=== PATIENT | female | born 1980 | race African-American/Black ===

== ENCOUNTER 2022-02-07 17:24 | Emergency (ER) | payer OTHER ==
[2022-02-07 17:31] VITALS: BP 96/67; PULSE 90; RESP 18; TEMP 98.4; BMI 43.8
[2022-02-07] MEDS ORDERED: hydrOXYzine PAMOATE 25 MG CAPSULE (FP) PO ONE ×2 (18:14→18:23)
== END 2022-02-07 19:08 | disposition home or self-care (01) ==
LOC: JERFT 17:24 → JER 17:24 → JERFT 19:08
DX: F41.9 Anxiety disorder, unspecified (principal)
CPT/HCPCS: 93005; 93010; 99283-25

== ENCOUNTER 2023-06-26 12:47 | Emergency (ER) | payer OTHER ==
[2023-06-26 13:06] VITALS: RESP 18; BMI 25.7
[2023-06-26 13:08] VITALS: BP 119/70; PULSE 70; TEMP 98.2
== END 2023-06-26 14:45 | disposition left against medical advice (07) ==
LOC: JER 12:47
DX: R07.9 Chest pain, unspecified (principal)
CPT/HCPCS: 93005; 93010; 99283-25

== ENCOUNTER 2023-07-06 11:12 | Emergency (ER) | payer OTHER ==
[2023-07-06 11:21] VITALS: BP 117/70; PULSE 90; RESP 18; TEMP 98; BMI 32.8
[2023-07-06 15:15] LABS: EOS % 2.9 % (0-4.5); HEMATOCRIT 35.5 % (32.4-45.2); HEMOGLOBIN 11.3 GM/dL (10.7-15.3); LYMPH % 31.1 % (8-40); MCH 26.9 pg (25.7-33.7); MCHC 31.9 g/dl (32.0-36.0); MEAN CELL VOLUME 84.3 fl (80-96); MEAN PLT VOLUME 6.4 fl (7.5-11.1); MONO % 7.9 % (3.8-10.2); NEUT % 57.1 % (42.8-82.8); PLATELET COUNT 407 10^3/uL (134-434); RBC 4.21 M/mm3 (3.60-5.2); RDW 16.4 % (11.6-15.6); WHITE BLOOD COUNT 8.9 K/mm3 (4.0-10.0)
[2023-07-06 17:29] LABS: POTASSIUM 4.3 mmol/L (3.5-5.1)
[2023-07-06 17:31] LABS: CALCIUM 9.1 mg/dL (8.5-10.1)
[2023-07-06 17:32] LABS: ALBUMIN 3.1 g/dl (3.4-5.0)
[2023-07-06 17:35] LABS: CREATININE 0.7 mg/dL (0.55-1.3)
[2023-07-06 17:36] LABS: BILIRUBIN,TOTAL 0.4 mg/dL (0.2-1); TOT PROT 8.6 g/dl (6.4-8.2)
== END 2023-07-06 15:35 | disposition home or self-care (01) ==
LOC: JER 11:12
DX: R07.9 Chest pain, unspecified (principal); F41.9 Anxiety disorder, unspecified; R00.2 Palpitations
CPT/HCPCS: 36415; 71046-TC-FY; 80053; 84443; 84484; 84703; 85025; 93005; 93010; 99285-25

== ENCOUNTER 2023-09-20 06:13 | Observation (INO) | payer OTHER ==
[2023-09-20 07:14] LABS: BASO % 0.6 % (0-2.0); EOS % 5.2 % (0-4.5); HEMATOCRIT 36.4 % (32.4-45.2); HEMOGLOBIN 11.6 GM/dL (10.7-15.3); LYMPH % 25.2 % (8-40); MCHC 31.8 g/dl (32.0-36.0); MEAN CELL VOLUME 81.8 fl (80-96); MONO % 9.4 % (3.8-10.2); NEUT % 59.6 % (42.8-82.8); PLATELET COUNT 341 10^3/uL (134-434); RBC 4.45 M/mm3 (3.60-5.2); RDW 16.9 % (11.6-15.6); WHITE BLOOD COUNT 9.8 K/mm3 (4.0-10.0)
[2023-09-20 07:28] LABS: POTASSIUM 4.5 mmol/L (3.5-5.1)
[2023-09-20 07:29] LABS: CALCIUM 8.7 mg/dL (8.5-10.1)
[2023-09-20 07:30] LABS: ALBUMIN 3.2 g/dl (3.4-5.0); BLOOD UREA NITROGEN 8.6 mg/dL (7-18)
[2023-09-20 07:33] LABS: CREATININE 0.8 mg/dL (0.55-1.3)
[2023-09-20 07:35] LABS: BILIRUBIN,TOTAL 0.7 mg/dL (0.2-1); TOT PROT 8.2 g/dl (6.4-8.2)
[2023-09-20] MEDS ORDERED: ACETAMINOPHEN INJECTION 100 ML IVPB ONE (08:17)
[2023-09-20] MEDS: ACETAMINOPHEN 1000 MG/100 ML BAG IVPB ONE (08:19)
[2023-09-20] MEDS ORDERED: FAMOTIDINE 20 MG/50 ML IVPB 20 MG/50 ML MG IVPB ONE (08:31)
[2023-09-20] MEDS: FAMOTIDINE 20 MG/50 ML IVPB 20 MG/50 ML MG IVPB ONE (08:45)
[2023-09-20 09:44] LABS: INR 1.11 (0.83-1.09); PROTHROMBIN TIME (PATIENT) 12.9 SEC (9.7-13.0)
[2023-09-20 09:47] LABS: ACTIVATED PTT 33.2 SECONDS (25.2-36.5)
[2023-09-20] MEDS: prednisoLONE ACETATE 1% OPHTH SUSP 5 ML BOTTLE OD SCH (10:26)
[2023-09-20 11:18] VITALS: BMI 44.2
[2023-09-20] MEDS ORDERED: LIDOCAINE VISCOUS 2% ORAL/TOP 15 ML UNIT-DOSE CUP ONE (11:19)
[2023-09-20] MEDS: LIDOCAINE VISCOUS 2% ORAL/TOP 15 ML UNIT-DOSE CUP PO ONE (11:25)
[2023-09-20] MEDS: TETRACAINE/BENZOCAINE/BUTAMBEN 20 GM SPR TP ONE (11:26)
[2023-09-20 11:49] VITALS: TEMP 98.1
[2023-09-20 13:09] VITALS: BP 134/64; PULSE 74; RESP 20
[2023-09-20] MEDS ORDERED: ATORVASTATIN CA 10 MG TABLET (FP) PO SCH (22:00)
== END 2023-09-20 15:46 | disposition home or self-care (01) ==
LOC: JER 06:13 → JERBED 08:43 → J6S 09:28
PROVIDERS: ADMIT Internal Medicine; ATTEND Internal Medicine
PROC: 0DB68ZX Excision of Stomach, Via Natural or Artificial Opening Endoscopic, Diagnostic (ICD-10-PCS; 2023-09-20)
PROC: 3E033GC Introduction of Other Therapeutic Substance into Peripheral Vein, Percutaneous Approach (ICD-10-PCS; 2023-09-20)
PROC: 3E033GC Introduction of Other Therapeutic Substance into Peripheral Vein, Percutaneous Approach (ICD-10-PCS; principal; 2023-09-20 10:45)
DX: R09.89 Other specified symptoms and signs involving the circulatory and respiratory systems (principal); R10.13 Epigastric pain; R13.10 Dysphagia, unspecified; D69.3 Immune thrombocytopenic purpura; E78.5 Hyperlipidemia, unspecified; Z87.891 Personal history of nicotine dependence; F19.21 Other psychoactive substance dependence, in remission
CPT/HCPCS: 36415; 70360-TC-FY; 71046-TC-FY; 71250-TC; 74190-TC-FY; 80053; 84484; 84703; 85025; 85610; 85730; 86850; 86870; 86880; 86900; 86901; 86902; 88305-TC; 88342-TC; 93005; 93010; 96365; 96375; 99285-25; G0378

== ENCOUNTER 2023-10-01 14:41 | Emergency (ER) | payer OTHER ==
[2023-10-01 14:58] VITALS: BP 119/70; PULSE 74; RESP 18; TEMP 98; BMI 44.6
[2023-10-01 16:58] LABS: BASO % 0.8 % (0-2.0); EOS % 4.3 % (0-4.5); LYMPH % 28.8 % (8-40); MCH 25.9 pg (25.7-33.7); MCHC 32.3 g/dl (32.0-36.0); MEAN CELL VOLUME 80.1 fl (80-96); MEAN PLT VOLUME 6.7 fl (7.5-11.1); MONO % 8.7 % (3.8-10.2); NEUT % 57.4 % (42.8-82.8); PLATELET COUNT 322 10^3/uL (134-434); RBC 4.62 M/mm3 (3.60-5.2); RDW 16.5 % (11.6-15.6); WHITE BLOOD COUNT 8.6 K/mm3 (4.0-10.0)
[2023-10-01 17:07] LABS: INR 1.03 (0.83-1.09); PROTHROMBIN TIME (PATIENT) 11.6 SEC (9.7-13.0)
[2023-10-01 17:22] LABS: POTASSIUM 4.5 mmol/L (3.5-5.1)
[2023-10-01 17:24] LABS: CALCIUM 9.1 mg/dL (8.5-10.1)
[2023-10-01 17:25] LABS: ALBUMIN 3.2 g/dl (3.4-5.0); BLOOD UREA NITROGEN 7.6 mg/dL (7-18)
[2023-10-01 17:28] LABS: CREATININE 0.7 mg/dL (0.55-1.3)
[2023-10-01 17:29] LABS: BILIRUBIN,TOTAL 0.6 mg/dL (0.2-1); TOT PROT 8.1 g/dl (6.4-8.2)
== END 2023-10-01 18:57 | disposition home or self-care (01) ==
LOC: JER 14:41
DX: R10.32 Left lower quadrant pain (principal); R11.0 Nausea
CPT/HCPCS: 36415; 80053; 85025; 85610; 85730; 99283-25

== ENCOUNTER 2023-11-28 08:52 | Emergency (ER) | payer OTHER ==
[2023-11-28 08:59] VITALS: BP 129/57; PULSE 79; RESP 20; TEMP 98; BMI 43.5
[2023-11-28] MEDS ORDERED: ACETAMINOPHEN INJECTION 100 ML IVPB ONE (10:27)
[2023-11-28] MEDS: ACETAMINOPHEN 1000 MG/100 ML BAG IVPB ONE (10:31)
[2023-11-28 10:34] LABS: BASO % 1.1 % (0-2.0); EOS % 7.4 % (0-4.5); HEMATOCRIT 33.8 % (32.4-45.2); HEMOGLOBIN 11.1 GM/dL (10.7-15.3); LYMPH % 31.2 % (8-40); MCH 26.2 pg (25.7-33.7); MCHC 32.9 g/dl (32.0-36.0); MEAN CELL VOLUME 79.5 fl (80-96); MEAN PLT VOLUME 7.5 fl (7.5-11.1); MONO % 8.6 % (3.8-10.2); NEUT % 51.7 % (42.8-82.8); PLATELET COUNT 530 10^3/uL (134-434); RBC 4.25 M/mm3 (3.60-5.2); RDW 16.9 % (11.6-15.6); WHITE BLOOD COUNT 5.9 K/mm3 (4.0-10.0)
[2023-11-28 10:50] LABS: POTASSIUM 4.3 mmol/L (3.5-5.1)
[2023-11-28 10:52] LABS: ALBUMIN 3.1 g/dl (3.4-5.0); BLOOD UREA NITROGEN 10.6 mg/dL (7-18); CALCIUM 8.9 mg/dL (8.5-10.1)
[2023-11-28 10:55] LABS: CREATININE 0.8 mg/dL (0.55-1.3)
[2023-11-28 10:57] LABS: BILIRUBIN,TOTAL 0.5 mg/dL (0.2-1); TOT PROT 8.3 g/dl (6.4-8.2)
== END 2023-11-28 11:57 | disposition home or self-care (01) ==
LOC: JER 08:52
DX: R07.89 Other chest pain (principal)
CPT/HCPCS: 36415; 71046-TC-FY; 80053; 84484; 84703; 85025; 93005; 93010; 99285-25

== ENCOUNTER 2023-12-26 15:00 | Emergency (ER) | payer OTHER ==
[2023-12-26 15:05] VITALS: BP 113/75; PULSE 72; RESP 16; TEMP 98.3; BMI 43.5
[2023-12-26] MEDS ORDERED: MULTIVITAMINS (DAILY MVI) TABLET (FP) ONE (16:19)
[2023-12-26] MEDS: MULTIVITAMINS (DAILY MVI) TABLET (FP) PO ONE (16:19)
[2023-12-26] MEDS: Methylnaltrexone Bromide 12 MG/0.6 ML KIT SQ SCH (17:54)
== END 2023-12-26 18:13 | disposition home or self-care (01) ==
LOC: JER 15:00
DX: K59.00 Constipation, unspecified (principal); R63.0 Anorexia; R14.0 Abdominal distension (gaseous); R10.9 Unspecified abdominal pain
CPT/HCPCS: 99283-25

== ENCOUNTER 2024-01-11 20:45 | Emergency (ER) | payer OTHER ==
[2024-01-11 20:54] VITALS: BP 141/79; PULSE 88; RESP 18; TEMP 99.1; BMI 43.5
[2024-01-11] MEDS ORDERED: METHOCARBAMOL 500 MG TABLET ONE (22:10)
[2024-01-11] MEDS ORDERED: LIDOCAINE 5% TOPICAL PATCH ONE (22:11)
[2024-01-11] MEDS ORDERED: ACETAMINOPHEN 325 MG TABLET (FP) ONE (22:11)
[2024-01-11] MEDS: METHOCARBAMOL 500 MG TABLET PO ONE (22:17)
[2024-01-11] MEDS: LIDOCAINE 4% PATCH TP ONE (22:17)
[2024-01-11] MEDS: ACETAMINOPHEN 500 MG TABLET (FP) PO ONE (22:17)
[2024-01-11 22:33] LABS: PH,URINE 5.5 (5.0-8.0); URINE APPEARANCE CLEAR; URINE BILIRUBIN NEGATIVE (NEGATIVE); URINE COLOR YELLOW; URINE GLUCOSE (UA) NEGATIVE (NEGATIVE); URINE KETONE NEGATIVE (NEGATIVE); URINE LEUK ESTERASE NEGATIVE (NEGATIVE); URINE NITRITE NEGATIVE (NEGATIVE); URINE PROTEIN NEGATIVE (NEGATIVE)
[2024-01-11 22:45] LABS: HEMATOCRIT 35.1 % (32.4-45.2); HEMOGLOBIN 11.6 GM/dL (10.7-15.3); MCH 27.6 pg (25.7-33.7); MEAN CELL VOLUME 83.7 fl (80-96); MEAN PLT VOLUME 8.3 fl (7.5-11.1); PLATELET COUNT 418 10^3/uL (134-434); WHITE BLOOD COUNT 9.2 K/mm3 (4.0-10.0)
[2024-01-11] MEDS: LIDOCAINE PATCH REMOVAL MC SCH (22:52)
[2024-01-11 22:53] LABS: CHLORIDE 104 mmol/L (98-107); SODIUM 133 mmol/L (136-145)
[2024-01-11 22:54] LABS: BLOOD UREA NITROGEN 8.8 mg/dL (7-18); CALCIUM 8.8 mg/dL (8.5-10.1); CO2 26 mmol/L (21-32); GLUCOSE,RANDOM 83 mg/dL (74-106)
[2024-01-11 22:58] LABS: CREATININE 0.9 mg/dL (0.55-1.3)
[2024-01-11 23:12] LABS: ANISOCYTOSIS 1+; MACROCYTOSIS 1+; OVALOCYTE 1+
[2024-01-11 23:32] LABS: ANION GAP 3 mmol/L (4-13); POTASSIUM 7.7 mmol/L (3.5-5.1)
== END 2024-01-11 23:26 | disposition home or self-care (01) ==
LOC: JER 20:45
DX: R10.9 Unspecified abdominal pain (principal); R35.0 Frequency of micturition
CPT/HCPCS: 36415; 80048; 81003; 84703; 85025; 99283-25

== ENCOUNTER 2024-02-08 18:12 | Emergency (ER) | payer OTHER ==
[2024-02-08 18:20] VITALS: BP 124/72; PULSE 96; RESP 18; TEMP 98.8; BMI 41.9
[2024-02-08] MEDS ORDERED: TETRACAINE 0.5% OPHTH SOLN 2 ML BOTTLE ONE (18:27)
[2024-02-08] MEDS ORDERED: FLUORESCEIN NA 1 EA STRIP ONE (18:27)
[2024-02-08] MEDS: TETRACAINE 0.5% OPHTH SOLN 2 ML BOTTLE OD ONE (18:55)
[2024-02-08] MEDS: FLUORESCEIN NA 1 EA STRIP OD ONE (18:55)
[2024-02-08] MEDS ORDERED: ACETAMINOPHEN 500 MG TABLET (FP) ONE (19:01)
[2024-02-08] MEDS ORDERED: AMOX TR/POT CLAV 875MG/125MG TABLETS (FP) ONE (19:01)
[2024-02-08] MEDS: ACETAMINOPHEN 500 MG TABLET (FP) PO ONE (19:05)
[2024-02-08] MEDS: AMOX TR/POT CLAV 875MG/125MG TABLETS (FP) PO ONE (19:06)
== END 2024-02-08 19:09 | disposition home or self-care (01) ==
LOC: JER 18:12 → JERFT 18:12
DX: H66.91 Otitis media, unspecified, right ear (principal); H11.441 Conjunctival cysts, right eye; R51.9 Headache, unspecified
CPT/HCPCS: 99283-25

== ENCOUNTER 2024-02-09 11:49 | Emergency (ER) | payer OTHER ==
[2024-02-09 11:57] VITALS: BP 109/65; PULSE 64; RESP 18; TEMP 98.6; BMI 38.7
== END 2024-02-09 13:56 | disposition left against medical advice (07) ==
LOC: JER 11:49
DX: Z53.21 Procedure and treatment not carried out due to patient leaving prior to being seen by health care provider (principal)
CPT/HCPCS: 93005; 93010; 99281-25

== ENCOUNTER 2024-02-19 08:12 | Emergency (ER) | payer OTHER ==
[2024-02-19 08:24] VITALS: BP 111/64; PULSE 75; RESP 18; TEMP 98.7; BMI 39.4
[2024-02-19 09:52] LABS: URINE APPEARANCE CLEAR; URINE BILIRUBIN NEGATIVE (NEGATIVE); URINE COLOR YELLOW; URINE GLUCOSE (UA) NEGATIVE (NEGATIVE); URINE KETONE TRACE (NEGATIVE); URINE LEUK ESTERASE NEGATIVE (NEGATIVE); URINE NITRITE NEGATIVE (NEGATIVE); URINE PROTEIN NEGATIVE (NEGATIVE)
[2024-02-19 09:52] LABS: BASO % 1.2 % (0-2.0); EOS % 5.3 % (0-4.5); HEMATOCRIT 35.2 % (32.4-45.2); HEMOGLOBIN 11.1 GM/dL (10.7-15.3); LYMPH % 28.8 % (8-40); MCH 26.5 pg (25.7-33.7); MCHC 31.5 g/dl (32.0-36.0); MEAN CELL VOLUME 83.9 fl (80-96); MEAN PLT VOLUME 7.2 fl (7.5-11.1); MONO % 8.9 % (3.8-10.2); NEUT % 55.8 % (42.8-82.8); PLATELET COUNT 493 10^3/uL (134-434); RBC 4.19 M/mm3 (3.60-5.2); RDW 18.9 % (11.6-15.6); WHITE BLOOD COUNT 7.4 K/mm3 (4.0-10.0)
[2024-02-19 10:08] LABS: POTASSIUM 4.2 mmol/L (3.5-5.1)
[2024-02-19 10:12] LABS: ALBUMIN 3.3 g/dl (3.4-5.0); BLOOD UREA NITROGEN 8.8 mg/dL (7-18)
[2024-02-19] MEDS ORDERED: ACETAMINOPHEN 325 MG TABLET (FP) ONE (10:12)
[2024-02-19 10:15] LABS: CREATININE 0.8 mg/dL (0.55-1.3)
[2024-02-19 10:16] LABS: BILIRUBIN,TOTAL 0.6 mg/dL (0.2-1)
[2024-02-19 10:17] LABS: TOT PROT 8.2 g/dl (6.4-8.2)
== END 2024-02-19 14:05 | disposition home or self-care (01) ==
LOC: JER 08:12
DX: O09.521 Supervision of elderly multigravida, first trimester (principal); O26.899 Other specified pregnancy related conditions, unspecified trimester; R10.2 Pelvic and perineal pain; Z3A.00 Weeks of gestation of pregnancy not specified
CPT/HCPCS: 36415; 76817-TC; 80053; 81003; 84702; 84703; 85025; 87086; 87186; 99284-25

== ENCOUNTER 2024-02-21 08:31 | Emergency (ER) | payer OTHER ==
[2024-02-21 08:38] VITALS: BP 125/68; PULSE 84; RESP 17; TEMP 99; BMI 39.4
== END 2024-02-21 11:53 | disposition home or self-care (01) ==
LOC: JER 08:31
DX: O09.521 Supervision of elderly multigravida, first trimester (principal); O26.891 Other specified pregnancy related conditions, first trimester; R10.9 Unspecified abdominal pain; Z3A.01 Less than 8 weeks gestation of pregnancy
CPT/HCPCS: 36415; 84702; 99283-25

== ENCOUNTER 2024-02-24 11:30 | Emergency (ER) | payer OTHER ==
[2024-02-24 11:37] VITALS: BP 117/66; PULSE 71; RESP 18; TEMP 98.3; BMI 39.4
[2024-02-24 13:14] LABS: URINE APPEARANCE CLEAR; URINE BILIRUBIN NEGATIVE (NEGATIVE); URINE COLOR YELLOW; URINE GLUCOSE (UA) NEGATIVE (NEGATIVE); URINE KETONE TRACE (NEGATIVE); URINE LEUK ESTERASE NEGATIVE (NEGATIVE); URINE NITRITE NEGATIVE (NEGATIVE); URINE PROTEIN NEGATIVE (NEGATIVE)
== END 2024-02-24 14:21 | disposition left against medical advice (07) ==
LOC: JER 11:30
DX: O26.851 Spotting complicating pregnancy, first trimester (principal); O26.891 Other specified pregnancy related conditions, first trimester; R10.31 Right lower quadrant pain; Z3A.01 Less than 8 weeks gestation of pregnancy
CPT/HCPCS: 81003; 87086; 99283-25

== ENCOUNTER 2024-03-10 18:06 | Emergency (ER) | payer OTHER ==
[2024-03-10 18:18] VITALS: BP 120/67; PULSE 78; RESP 18; TEMP 98; BMI 38.2
[2024-03-10] MEDS ORDERED: ACETAMINOPHEN 1000 MG/100 ML BAG IVPB ONE (19:15)
[2024-03-10] MEDS ORDERED: FAMOTIDINE 20 MG/50 ML IVPB 20 MG/50 ML MG IVPB ONE (19:15)
[2024-03-10] MEDS ORDERED: MAG HYDROX/AL HYDROX/SIMETH 30 ML UNIT-DOSE CUP PO ONE (19:15)
== END 2024-03-10 19:40 | disposition left against medical advice (07) ==
LOC: JER 18:06
DX: R07.89 Other chest pain (principal); R10.84 Generalized abdominal pain
CPT/HCPCS: 93005; 93010; 99283-25

== ENCOUNTER 2024-03-30 20:45 | Emergency (ER) | payer OTHER ==
[2024-03-30 20:53] VITALS: BP 125/70; PULSE 72; RESP 20; TEMP 99.3; BMI 37.5
[2024-03-30 23:31] LABS: EPI CELLS 21 /uL (0-25.1); HYALINE CASTS 1 /uL (0-3.1); PH,URINE 5.5 (5.0-8.0); URINE APPEARANCE CLOUDY; URINE BACTERIA 42 /uL (0-1359); URINE BILIRUBIN NEGATIVE (NEGATIVE); URINE COLOR DK YELLOW; URINE GLUCOSE (UA) NEGATIVE (NEGATIVE); URINE KETONE TRACE (NEGATIVE); URINE LEUK ESTERASE TRACE (NEGATIVE); URINE NITRITE NEGATIVE (NEGATIVE); URINE PROTEIN 1+ (NEGATIVE); URINE RBC 8203 /uL (0-23.9); URINE WBC 29 /uL (0-25.8)
[2024-03-31] MEDS: SODIUM CHLORIDE 0.9% 500 ML INFUS.BAG IV ONE (00:11)
[2024-03-31 00:38] LABS: BASO % 0.5 % (0-2.0); EOS % 2.8 % (0-4.5); HEMATOCRIT 35.4 % (32.4-45.2); HEMOGLOBIN 11.4 GM/dL (10.7-15.3); LYMPH % 26.1 % (8-40); MCH 27.7 pg (25.7-33.7); MCHC 32.2 g/dl (32.0-36.0); MEAN CELL VOLUME 86.1 fl (80-96); MONO % 8.5 % (3.8-10.2); NEUT % 62.1 % (42.8-82.8); PLATELET COUNT 212 10^3/uL (134-434); RBC 4.11 M/mm3 (3.60-5.2)
[2024-03-31 00:48] LABS: POTASSIUM 3.8 mmol/L (3.5-5.1)
[2024-03-31 00:50] LABS: ALBUMIN 3.5 g/dl (3.4-5.0); CALCIUM 9.3 mg/dL (8.5-10.1)
[2024-03-31 00:51] LABS: BLOOD UREA NITROGEN 10.3 mg/dL (7-18)
[2024-03-31 00:54] LABS: CREATININE 0.7 mg/dL (0.55-1.3)
[2024-03-31 00:56] LABS: BILIRUBIN,TOTAL 0.4 mg/dL (0.2-1); TOT PROT 8.2 g/dl (6.4-8.2)
[2024-03-31 01:13] LABS: INR 1.07 (0.83-1.09); PROTHROMBIN TIME (PATIENT) 12.3 SEC (9.7-13.0)
[2024-03-31 01:16] LABS: ACTIVATED PTT 36.3 SECONDS (25.2-36.5)
== END 2024-03-31 01:52 | disposition home or self-care (01) ==
LOC: JER 20:45
DX: O03.9 Complete or unspecified spontaneous abortion without complication (principal)
CPT/HCPCS: 36415; 76817-TC; 80053; 81003; 83735; 84702; 85025; 85610; 85730; 87086; 99284-25

== ENCOUNTER 2024-04-01 16:18 | Emergency (ER) | payer OTHER ==
[2024-04-01 16:38] VITALS: BP 121/79; PULSE 88; RESP 20; TEMP 98.3; BMI 38.7
[2024-04-01 17:26] LABS: BASO % 0.8 % (0-2.0); HEMATOCRIT 34.4 % (32.4-45.2); HEMOGLOBIN 11.1 GM/dL (10.7-15.3); LYMPH % 25.6 % (8-40); MCH 27.7 pg (25.7-33.7); MCHC 32.3 g/dl (32.0-36.0); MEAN CELL VOLUME 85.6 fl (80-96); MEAN PLT VOLUME 7.5 fl (7.5-11.1); NEUT % 61.6 % (42.8-82.8); PLATELET COUNT 223 10^3/uL (134-434); RBC 4.01 M/mm3 (3.60-5.2); RDW 16.9 % (11.6-15.6); WHITE BLOOD COUNT 7.5 K/mm3 (4.0-10.0)
[2024-04-01 17:49] LABS: POTASSIUM 3.4 mmol/L (3.5-5.1)
[2024-04-01 17:50] LABS: CALCIUM 8.6 mg/dL (8.5-10.1)
[2024-04-01 17:51] LABS: ALBUMIN 3.5 g/dl (3.4-5.0); BLOOD UREA NITROGEN 7.7 mg/dL (7-18)
[2024-04-01 17:54] LABS: CREATININE 0.8 mg/dL (0.55-1.3)
[2024-04-01 17:56] LABS: BILIRUBIN,TOTAL 0.9 mg/dL (0.2-1); TOT PROT 8.1 g/dl (6.4-8.2)
[2024-04-01] MEDS ORDERED: POTASSIUM CHLORIDE ORAL LIQUID 20 MEQ/15 ML ONE (18:18)
[2024-04-01] MEDS: POTASSIUM CHLORIDE ORAL LIQUID 20 MEQ/15 ML PO ONE (18:29)
== END 2024-04-01 18:33 | disposition left against medical advice (07) ==
LOC: JER 16:18
DX: O03.9 Complete or unspecified spontaneous abortion without complication (principal); E87.6 Hypokalemia; R42 Dizziness and giddiness; R07.9 Chest pain, unspecified
CPT/HCPCS: 36415; 80053; 84484; 84702; 85025; 93005; 93010; 99284-25

== ENCOUNTER 2024-07-28 17:37 | Emergency (ER) | payer OTHER ==
[2024-07-28 18:15] VITALS: TEMP 99.2; BMI 38.7
[2024-07-28 20:37] LABS: BASO % 0.6 % (0-2.0); EOS % 3.3 % (0-4.5); HEMOGLOBIN 10.3 GM/dL (10.7-15.3); LYMPH % 27.5 % (8-40); MCHC 33.2 g/dl (32.0-36.0); MEAN CELL VOLUME 84.3 fl (80-96); MEAN PLT VOLUME 6.8 fl (7.5-11.1); MONO % 7.9 % (3.8-10.2); NEUT % 60.7 % (42.8-82.8); PLATELET COUNT 461 10^3/uL (134-434); RBC 3.68 M/mm3 (3.60-5.2); RDW 16.7 % (11.6-15.6); WHITE BLOOD COUNT 8.6 K/mm3 (4.0-10.0)
[2024-07-28 20:38] LABS: PH,URINE 5.5 (5.0-8.0); URINE APPEARANCE CLOUDY; URINE BILIRUBIN NEGATIVE (NEGATIVE); URINE COLOR YELLOW; URINE GLUCOSE (UA) NEGATIVE (NEGATIVE); URINE KETONE 2+ (NEGATIVE); URINE LEUK ESTERASE NEGATIVE (NEGATIVE); URINE NITRITE NEGATIVE (NEGATIVE); URINE PROTEIN NEGATIVE (NEGATIVE)
[2024-07-28 20:41] LABS: HCG,QUALITATIVE URINE Negative
[2024-07-28 21:18] LABS: CHLORIDE 104 mmol/L (98-107); SODIUM 133 mmol/L (136-145)
[2024-07-28 21:19] LABS: POTASSIUM 7.3 mmol/L (3.5-5.1)
[2024-07-28 21:20] LABS: ALBUMIN 2.8 g/dl (3.4-5.0); ANION GAP 6 mmol/L (4-13); BLOOD UREA NITROGEN 13.3 mg/dL (7-18); CALCIUM 8.7 mg/dL (8.5-10.1); CO2 23 mmol/L (21-32); GLUCOSE,RANDOM 68 mg/dL (74-106)
[2024-07-28 21:23] LABS: CREATININE 0.7 mg/dL (0.55-1.3); SGOT/AST 82 U/L (15-37)
[2024-07-28 21:25] LABS: BILIRUBIN,TOTAL 0.7 mg/dL (0.2-1); TOT PROT 8.1 g/dl (6.4-8.2)
[2024-07-28 21:26] LABS: ALK PHOS 71 U/L (45-117); SGPT/ALT 26 U/L (13-61)
[2024-07-28] MEDS ORDERED: ACETAMINOPHEN INJECTION 100 ML ONE (21:42)
[2024-07-28] MEDS: ACETAMINOPHEN 1000 MG/100 ML BAG IVPB ONE (21:43)
[2024-07-28] MEDS: SODIUM CHLORIDE 0.9% 500 ML INFUS.BAG IV ONE (22:47)
[2024-07-28] MEDS ORDERED: morphine SULFATE 4 MG/ML VIAL ONE (22:51)
[2024-07-28] MEDS: morphine CARPU-JECT 4 MG/1 ML DISP.SYRIN IVPUSH ONE (22:56)
[2024-07-28 23:43] VITALS: BP 143/70; PULSE 88; RESP 16
[2024-07-28] MEDS ORDERED: APIXABAN 5 MG TABLET PO ONE ×2 (23:48)
[2024-07-29] MEDS ORDERED: APIXABAN 2.5 MG TABLET ONE (00:05)
[2024-07-29 01:20] LABS: POTASSIUM 4.1 mmol/L (3.5-5.1)
[2024-07-29 01:22] LABS: BLOOD UREA NITROGEN 13.4 mg/dL (7-18); CALCIUM 8.8 mg/dL (8.5-10.1)
[2024-07-29 01:25] LABS: CREATININE 0.6 mg/dL (0.55-1.3)
[2024-07-29] MEDS ORDERED: APIXABAN 5 MG TABLET PO SCH (10:00)
== END 2024-07-29 00:10 | disposition home or self-care (01) ==
LOC: JER 17:37
PROC: 3E033NZ Introduction of Analgesics, Hypnotics, Sedatives into Peripheral Vein, Percutaneous Approach (ICD-10-PCS; principal; 2024-07-28)
PROC: 3E033NZ Introduction of Analgesics, Hypnotics, Sedatives into Peripheral Vein, Percutaneous Approach (ICD-10-PCS; 2024-07-28)
DX: K59.00 Constipation, unspecified (principal); R10.32 Left lower quadrant pain
CPT/HCPCS: 36415; 74177-TC; 80048; 80053; 81003; 84703; 85025; 86140; 87086; 87186; 93005; 93010; 96374; 96375; 99285-25; J0131; Q9967

== ENCOUNTER 2024-08-20 13:48 | Emergency (ER) | payer OTHER ==
[2024-08-20 13:55] VITALS: BP 135/71; PULSE 76; RESP 18; TEMP 98.6; BMI 38.7
[2024-08-20 16:59] LABS: ABSOLUTE IMMATURE GRANULOCYTES 0.01 x10^3/uL (0.0-0.031); BASOPHILS # 0.09 x10^3/uL (0.01-0.08); EOSINOPHIL % 7.7 % (0.7-5.8); EOSINOPHILS # 0.55 x10^3/uL (0.04-0.36); HEMATOCRIT 33.8 % (34.1-44.9); HEMOGLOBIN 10.6 g/dL (11.2-15.7); MCHC 31.4 g/dl (32.2-35.5); MEAN PLT VOLUME 11.3 fl (9.4-12.3); MONOCYTE # 0.64 x10^3/uL (0.24-0.86); PLATELET COUNT # 323 x10^3/uL (182-369); RDW 17.7 % (12.2-17.1)
[2024-08-20 17:16] LABS: CHLORIDE 102 mmol/L (98-107); SODIUM 133 mmol/L (136-145)
[2024-08-20 17:18] LABS: ALBUMIN 3.4 g/dl (3.4-5.0); CALCIUM 8.9 mg/dL (8.5-10.1)
[2024-08-20 17:19] LABS: BLOOD UREA NITROGEN 16.9 mg/dL (7-18); CO2 24 mmol/L (21-32); GLUCOSE,RANDOM 75 mg/dL (74-106)
[2024-08-20 17:22] LABS: CREATININE 0.8 mg/dL (0.55-1.3); SGOT/AST 66 U/L (15-37); SGPT/ALT 19 U/L (13-61)
[2024-08-20 17:23] LABS: BILIRUBIN,TOTAL 0.8 mg/dL (0.2-1); TOT PROT 8.8 g/dl (6.4-8.2)
[2024-08-20 17:24] LABS: ALK PHOS 66 U/L (45-117)
[2024-08-20 17:29] LABS: ANION GAP 7 mmol/L (4-13); POTASSIUM 7.3 mmol/L (3.5-5.1)
== END 2024-08-20 18:21 | disposition left against medical advice (07) ==
LOC: JER 13:48
DX: R42 Dizziness and giddiness (principal); R07.89 Other chest pain
CPT/HCPCS: 36415; 80053; 84703; 85025; 93005; 93010; 99284-25

== ENCOUNTER 2024-10-10 12:19 | Emergency (ER) | payer OTHER ==
[2024-10-10 12:33] VITALS: BP 139/67; PULSE 86; RESP 19; TEMP 98.3; BMI 37.1
[2024-10-10 14:29] LABS: ABSOLUTE IMMATURE GRANULOCYTES 0.01 x10^3/uL (0.0-0.031); BASOPHILS # 0.06 x10^3/uL (0.01-0.08); EOSINOPHIL % 3.1 % (0.7-5.8); EOSINOPHILS # 0.18 x10^3/uL (0.04-0.36); HEMATOCRIT 37.5 % (34.1-44.9); MEAN CELL VOLUME 80.6 fl (79.4-94.8); MEAN PLT VOLUME 9.8 fl (9.4-12.3); MONOCYTE # 0.46 x10^3/uL (0.24-0.86); PLATELET COUNT 494 x10^3/uL (182-369); RDW 17.1 % (12.2-17.1)
[2024-10-10 14:48] LABS: POTASSIUM 4.7 mmol/L (3.5-5.1)
[2024-10-10 14:54] LABS: ALBUMIN 3.4 g/dl (3.4-5.0); CALCIUM 9.6 mg/dL (8.5-10.1)
[2024-10-10 14:55] LABS: MAGNESIUM 2.2 mg/dL (1.8-2.4)
[2024-10-10 14:57] LABS: CREATININE 0.7 mg/dL (0.55-1.3)
[2024-10-10 14:59] LABS: BILIRUBIN,TOTAL 0.5 mg/dL (0.2-1)
== END 2024-10-10 15:00 | disposition left against medical advice (07) ==
LOC: JER 12:19
DX: R07.89 Other chest pain (principal); R42 Dizziness and giddiness; R00.2 Palpitations
CPT/HCPCS: 0241U-QW; 36415; 80053; 83735; 84484; 84703; 85025; 93005; 93010; 99285-25

== ENCOUNTER 2025-02-13 19:46 | Emergency (ER) | payer OTHER ==
[2025-02-13 19:56] VITALS: BP 118/50; PULSE 74; RESP 18; TEMP 98.7; BMI 38.7
[2025-02-13 20:34] LABS: MCHC 33.2 g/dl (32.2-35.5); MEAN CELL VOLUME 86.8 fl (79.4-94.8); MEAN PLT VOLUME 9.2 fl (9.4-12.3); RDW 17.2 % (12.2-17.1)
[2025-02-13] MEDS: SODIUM CHLORIDE 0.9% 500 ML INFUS.BAG IV ONE (20:41)
[2025-02-13 20:51] LABS: GLUCOSE,RANDOM 96.0 mg/dL (74-106); TOT PROT 8.9 g/dl (6.4-8.2)
[2025-02-13 20:54] LABS: ALK PHOS 61.0 U/L (40-150)
[2025-02-13 20:57] LABS: CREATININE 0.66 mg/dL (0.55-1.3); SGOT/AST 50.0 U/L (5-34); SGPT/ALT 30.0 U/L (0-55)
[2025-02-13 21:03] LABS: CO2 23.0 mmol/L (21-32)
[2025-02-13 21:17] LABS: HCV DIAGNOSTIC IN-HOUSE W/RFLX NON-REACTIVE (NONREACTIVE)
[2025-02-13 21:18] LABS: HIV INTERPRETATION NEGATIVE (NEGATIVE)
[2025-02-13 21:56] LABS: GLUCOSE,RANDOM 82 mg/dL (74-106)
[2025-02-13 21:58] LABS: CO2 23 mmol/L (21-32)
[2025-02-13 22:02] LABS: CREATININE 0.57 mg/dL (0.55-1.3)
== END 2025-02-13 22:24 | disposition home or self-care (01) ==
LOC: JER 19:46
DX: R42 Dizziness and giddiness (principal); R25.2 Cramp and spasm
CPT/HCPCS: 36415; 80048; 80053; 82550; 84484; 85025; 86803; 87389; 87637-QW; 93005; 93010; 99284-25

== ENCOUNTER 2025-03-01 09:05 | Emergency (ER) | payer OTHER ==
[2025-03-01 09:14] VITALS: BP 125/50; PULSE 78; RESP 16; TEMP 98.2; BMI 38.7
== END 2025-03-01 12:00 | disposition home or self-care (01) ==
LOC: JERFT 09:05
DX: S50.12XA Contusion of left forearm, initial encounter (principal); W46.0XXA Contact with hypodermic needle, initial encounter
CPT/HCPCS: 93971-TC-LT; 99284-25